=== PATIENT | male | born 1985 | race Caucasian/White ===

== ENCOUNTER 2020-07-30 08:41 | Outpatient (CLI) | payer OTHER ==
[~2020-07-30 08:41] MED LIST: LIDOCAINE 1%, 10ML ONE; ROPivacaine/PF 0.2%, 10 ML ONE; SODIUM BICARBONATE 4.2%, 5ML ONE
[2020-07-30] MEDS ORDERED: GADOTERATE 2.5 MMOL/5 ML VIAL ONE (09:00)
[2020-07-30] MEDS ORDERED: OMNIPAQUE 300 MG/ML, 10ML VIAL ONE (09:00)
[2020-07-30] MEDS ORDERED: LIDOCAINE 1%, 10ML ONE (09:18)
== END 2020-07-30 23:59 | disposition home or self-care (01) ==
LOC: RAD 08:41
PROVIDERS: ATTEND Orthopaedic Surgery
DX: M25.511 Pain in right shoulder (principal); S43.431A Superior glenoid labrum lesion of right shoulder, initial encounter; M25.311 Other instability, right shoulder; X58.XXXA Exposure to other specified factors, initial encounter; Y93.89 Activity, other specified; Y92.89 Other specified places as the place of occurrence of the external cause; Y99.8 Other external cause status
CPT/HCPCS: 23350; 73040; 73222; A9575; J3490; Q9967; J2795